=== PATIENT | male | born 1990 | race Caucasian/White ===

== ENCOUNTER 2016-11-22 08:59 | Outpatient (CLI) | payer OTHER ==
--- NOTE | 2016-11-22 09:22 | DIAGNOSTIC IMAGING REPORT ---
PROCEDURE: XR CHEST 2 VIEW INDICATION: SHORT OF BREATH, CHEST DISCOMFORT TECHNIQUE: PA and lateral view. COMPARISON: Chest x-ray 03/01/2013. FINDINGS: Right hilar surgical changes, right thoracoplasty, right hemithorax volume loss and right lateral apical pleural thickening, unchanged. Normal left lung. Heart size, mediastinum and pulmonary vessels are normal. IMPRESSION: 1. No acute changes 2. Stable right upper lobe postsurgical changes and right hemithorax volume loss
== END 2016-11-22 23:00 | disposition home or self-care (01) ==
LOC: XR SRH 08:59
DX: R06.02 Shortness of breath (principal); R07.89 Other chest pain